=== PATIENT | female | born 1990 | race American Indian/Alaskan Native ===

== ENCOUNTER 2017-01-21 06:16 | Emergency (ER) | payer MEDICAID ==
[2017-01-21 07:12] LABS: Basophils % (Auto) 0.6 % (0.0-1.8); Hematocrit 38.4 % (30.3-42.9); Hemoglobin 13.5 gm/dl (10.1-14.3); Mean Corpuscular HGB Conc 35 % (30-34); Mean Corpuscular Hemoglobin 32 pg (28-32); Mean Corpuscular Volume 92 fl (79-97); Platelet Count 178 K/mm3 (140-440); Red Blood Count 4.17 M/mm3 (3.65-5.03); Red Cell Distribution Width 13.3 % (13.2-15.2); White Blood Count 6.6 K/mm3 (4.5-11.0)
[2017-01-21 07:24] LABS: Alanine Aminotransferase 11 units/L (7-56); Albumin 3.9 g/dL (3.9-5); Albumin/Globulin Ratio 1.1 %; Alkaline Phosphatase 68 units/L (35-129); Anion Gap 21 mmol/L; BUN/Creatinine Ratio 23.33; Blood Urea Nitrogen 7 mg/dL (7-17); Calcium 9.2 mg/dL (8.4-10.2); Carbon Dioxide 18 mmol/L (22-30); Chloride 101.1 mmol/L (98-107); Glucose 77 mg/dL (65-100); Lipase 34 units/L (13-60); Potassium 3.8 mmol/L (3.6-5.0); Sodium 136 mmol/L (137-145); Total Protein 7.3 g/dL (6.3-8.2)
[2017-01-21] MEDS ORDERED: ZOFRAN IV ONE (07:45)
[2017-01-21] MEDS ORDERED: NACL 0.9% 1000 ML 1,000 ML IV ONE ×2 (07:45→07:52)
--- NOTE | 2017-01-21 07:55 | Emergency Department Report ---
HPI - General Chief Complaint: Nausea/Vomiting/Diarrhea Time Seen by Provider: 01/21/17 07:39 - HPI HPI: Room 25 The patient is a 26-year-old female presenting with the chief complaint of nausea and vomiting. The patient states past 3 days she has been vomiting and unable to keep anything down. Patient is approximately 14 weeks' gestational age who states she's had lower abdominal pain since yesterday. Patient denies fever, diarrhea or vaginal bleeding. Location: The gastrointestinal system Duration: 3 days Quality: Nausea, pain Severity: Moderate Modifying factors: [see above] Context: [see above] Mode of transportation: Unknown ED Past Medical Hx - Past Medical History Hx Renal Disease: Yes (kidney stones) Hx Kidney Stones: Yes Hx Psychiatric Treatment: Yes (depression) - Surgical History Additional Surgical History: pt denies - Family History Family history: no significant - Social History Smoking Status: Never Smoker Substance Use Type: None - Medications Home Medications: Home Medications Medication Instructions Recorded Confirmed Last Taken Type Acetaminophen/Codeine [Tylenol #3] 1 tab PO Q6H PRN #20 tab 02/21/15 Unknown Rx Mupirocin [Bactroban 2%] 1 applic TP TID #1 tube 02/21/15 Unknown Rx Sertraline [Zoloft] 50 mg PO QDAY 02/21/15 02/21/15 02/14/15 History Sulfamethoxazole/Trimethoprim 1 each PO BID #20 tablet 02/21/15 Unknown Rx [Bactrim DS TAB] medroxyPROGESTERone ACETATE 150 mg IM Q3M 02/21/15 02/21/15 12/12/14 History [Depo-Provera (Contraception)] Nitrofurantoin Collier/M-Cryst 100 mg PO Q12HR #20 capsule 01/21/17 Unknown Rx [Macrobid CAP] Ondansetron [Zofran ODT TAB] 8 mg PO Q8HR #20 tab.rapdis 01/21/17 Unknown Rx ED Review of Systems ROS: Stated complaint: DEHYDRATION, VOIMITING, 14 WEEKS Other details as noted in HPI Comment: All other systems reviewed and negative Constitutional: denies: chills, fever Eyes: denies: eye pain, eye discharge, vision change ENT: denies: ear pain, throat pain Respiratory: denies: cough, shortness of breath, wheezing Cardiovascular: denies: chest pain, palpitations Endocrine: no symptoms reported Gastrointestinal: abdominal pain, nausea, vomiting. denies: diarrhea Genitourinary: denies: urgency, dysuria, discharge Musculoskeletal: back pain Skin: denies: rash, lesions Neurological: denies: headache, weakness, paresthesias Psychiatric: denies: anxiety, depression Hematological/Lymphatic: denies: easy bleeding, easy bruising Physical Exam - Physical Exam Vital Signs: Vital Signs 01/21/17 01/21/17 06:20 06:21 Temperature 98.5 F 98.5 F Pulse Rate 100 H 100 H Respiratory 18 Rate Blood Pressure 106/66 106/66 O2 Sat by Pulse 96 96 Oximetry Physical Exam: GENERAL: The patient is well-developed well-nourished female lying on a stretcher appearing to be in moderate discomfort. [] HEENT: Normocephalic. Atraumatic. Extraocular motions are intact. NECK: Supple. No meningitic signs are noted. There is no adenopathy noted. CHEST/LUNGS: Clear to auscultation. There is no respiratory distress noted. HEART/CARDIOVASCULAR: Regular. There is no tachycardia. There is no gallop rub or murmur. ABDOMEN: Abdomen is soft, nontender. Patient has normal bowel sounds. There is no abdominal distention. SKIN: There is no rash. There is no edema. There is no diaphoresis. NEURO: The patient is awake, alert, and oriented. The patient is cooperative. The patient has normal speech MUSCULOSKELETAL: There is no evidence of acute injury. ED Course Vital Signs 01/21/17 01/21/17 06:20 06:21 Temperature 98.5 F 98.5 F Pulse Rate 100 H 100 H Respiratory 18 Rate Blood Pressure 106/66 106/66 O2 Sat by Pulse 96 96 Oximetry - Reevaluation(s) Reevaluation #1: 01/21/17 10:04 Patient tolerating po ED Medical Decision Making - Lab Data Result diagrams: 01/21/17 06:46 01/21/17 06:46 Laboratory Tests 01/21/17 01/21/17 01/21/17 06:46 06:46 07:55 WBC 6.6 RBC 4.17 Hgb 13.5 Hct 38.4 MCV 92 MCH 32 MCHC 35 H RDW 13.3 Plt Count 178 Lymph % (Auto) 19.5 Collier % (Auto) 7.7 H Eos % (Auto) 1.0 Baso % (Auto) 0.6 Lymph # 1.3 Collier # 0.5 Eos # 0.1 Baso # 0.0 Seg Neutrophils % 71.2 H Seg Neutrophils # 4.7 Sodium 136 L Potassium 3.8 Chloride 101.1 Carbon Dioxide 18 L Anion Gap 21 BUN 7 Creatinine 0.3 L Estimated GFR > 60 BUN/Creatinine Ratio 23.33 Glucose 77 Calcium 9.2 Total Bilirubin 0.40 AST 13 ALT 11 Alkaline Phosphatase 68 Total Protein 7.3 Albumin 3.9 Albumin/Globulin Ratio 1.1 Lipase 34 HCG, Quant 12068 H Urine Color Urine Turbidity Urine pH Ur Specific [place] Urine Protein Urine Glucose (UA) Urine Ketones Urine Blood Urine Nitrite Urine Bilirubin Urine Urobilinogen Ur Leukocyte Esterase Urine WBC (Auto) Urine RBC (Auto) U Epithel Cells (Auto) Urine Mucus 01/21/17 08:06 WBC RBC Hgb Hct MCV MCH MCHC RDW Plt Count Lymph % (Auto) Collier % (Auto) Eos % (Auto) Baso % (Auto) Lymph # [place]lier # Eos # Baso # Seg Neutrophils % Seg Neutrophils # Sodium Potassium Chloride Carbon Dioxide Anion Gap BUN Creatinine Estimated GFR BUN/Creatinine Ratio Glucose Calcium Total Bilirubin AST ALT Alkaline Phosphatase Total Protein Albumin Albumin/Globulin Ratio Lipase HCG, Quant Urine Color [place] Urine Turbidity Cloudy Urine pH 6.0 Ur Specific [place] 1.028 Urine Protein 100 mg/dl Urine Glucose (UA) Neg Urine Ketones 80 Urine Blood Neg Urine Nitrite Neg Urine Bilirubin Neg Urine Urobilinogen 2.0 Ur Leukocyte Esterase Mod Urine WBC (Auto) 81.0 H Urine RBC (Auto) 30.0 U Epithel Cells (Auto) 80.0 H Urine Mucus 3+ - EKG Data -: EKG Interpreted by Ar EKG shows normal: sinus rhythm Rate: normal - EKG Data When compared to previous EKG there are: no significant change Interpretation: unchanged when compared t (10/21/2015) - Radiology Data Radiology results: report reviewed (pelvic ultrasound), image reviewed (pelvic ultrasound) Pelvic ultrasound (read by radiologist)-single viable intrauterine gestation with ultrasound estimated age of 14 weeks and 5 days. - Differential Diagnosis hyperemesis gravidarum, UTI Critical care attestation.: If time is entered above; I have spent that time in minutes in the direct care of this critically ill patient, excluding procedure time. ED Disposition Clinical Impression: Hyperemesis gravidarum, UTI (urinary tract infection) Disposition: DC- TO HOME OR SELFCARE Is pt being admited?: No Does the pt Need Aspirin: No Condition: Stable Instructions: Hyperemesis Gravidarum (ED) Additional Instructions: Return to the emergency department immediately should you develop worsening symptoms, fever, inability to tolerate food or liquid or any other concerns. Prescriptions: Nitrofurantoin [place]lier/M-Cryst [Macrobid CAP] 100 mg PO Q12HR #20 capsule Ondansetron [Zofran ODT TAB] 8 mg PO Q8HR #20 tab.rapdis Referrals: CONSTANTINO ESCALANTE MD [Staff Physician] - 3-5 Days Time of Disposition: 10:07
[2017-01-21 08:32] LABS: Bilirubin,Urine NEG (Negative); Blood,Urine NEG (Negative); Ketones,Urine 80 mg/dL (Negative); Leukocyte Esterase,Urine MOD (Negative); Mucus,Urine 3+ /HPF; Nitrite,Urine NEG (Negative)
[2017-01-21] MEDS ORDERED: ROCEPHIN/NS 1 GM/50 ML 1 GM/50 ML BAG IV ONE (08:58)
--- NOTE | 2017-01-21 09:54 | Ultrasound Report ---
OB ULTRASOUND GREATER THAN 14 WEEKS INDICATION: Lower abdominal pain. COMPARISON: None similar at this institution. TECHNIQUE: Transabdominal grayscale ultrasound with Doppler interrogation. Gestation: Good Position: Breech Amniotic Fluid: WNL (< 24 weeks, subjective) Placenta: Posterior, fundal Placental Grade: 0 Heart Rate: 155 BPM Cervical length: 3 cm (Normal > 3 cm) It is too early for a anatomical survey BPD: 2.8 cm = 15 w 0 d HC: 10.5 cm = 15 w 0 d AC: 8.7 cm = 15 w 0 d FL: 1.4 cm = 14 w 0 d HC/AC Ratio: 1.21 Cephalic Index: 84.7 LMP: 10/09/2016 Clinical age = 14 w 6 d EDC: 07/16/2017 US Gest. Age = 14 w 5 d EDC: 07/17/2017 CONCLUSION: Single, viable intrauterine gestation with ultrasound estimated age of 14 weeks and 5 days and EDC of 07/17/2017, currently in breech lie with details, as above. Thank you for the opportunity to participate in this patient's care.
[2017-01-21 10:23] VITALS: BP 110/62
== END 2017-01-21 10:22 | disposition home or self-care (01) ==
LOC: ED 06:16
DX: O21.0 Mild hyperemesis gravidarum (principal); O23.42 Unspecified infection of urinary tract in pregnancy, second trimester; Z3A.14 14 weeks gestation of pregnancy
CPT/HCPCS: 36415; 76805; 80053; 81001; 83690; 84702; 85025; 87086; 93005; 93010; 96361; 96365; 96375; 99284; J0696; J2405; J7030

== ENCOUNTER 2017-06-23 05:04 | Inpatient (IN) | payer OTHER ==
[2017-06-23] MEDS ORDERED: LACTATED RINGERS 1,000 ML IV SCH ×2 (06:00→08:00)
[2017-06-23] MEDS ORDERED: POLYCILLIN/NS 2 GM/100 ML 2 GM/100 ML BAG IV SCH (06:00)
--- NOTE | 2017-06-23 06:57 | History and Physical Report ---
History of Present Illness Date of examination: 06/23/17 Date of admission: 06/23/17 Chief complaint: broke my water History of present illness: This is a 27 yo at Past History Past Medical History: no pertinent history Past Surgical History: other (cerclage) [employer] History: herpes Family/Genetic History: diabetes, hypertension Social history: single. denies: smoking, alcohol abuse, prescription drug abuse - Obstetrical History Expected Date of Delivery: 07/16/17 Actual Gestation: 36 Week(s) 5 Day(s) : 3 Para: 2 Hx # Term Pregnancies: 1 Number of Pregnancies: 1 Spontaneous Abortions: 0 Induced : 0 Number of Living Children: 1 Medications and Allergies Allergies Allergy/AdvReac Type Severity Reaction Status Date / Time [place] And Derivatives AdvReac Anaphylaxis Verified 06/23/17 05:15 Home Medications Medication Instructions Recorded Confirmed Last Taken Type Acetaminophen [Tylenol Extra 1,000 mg PO Q6H PRN 03/07/17 03/07/17 03/03/17 History Strength] Active Meds: Active Medications Ampicillin Sodium (Polycillin/Ns 2 Gm/100 Ml) 2 gm in 100 mls @ 100 mls/hr IV ONCE JILLIAN PRN Reason: Protocol Lactated Ringer's (Lactated Ringers) 1,000 mls @ 125 mls/hr IV DIRECT JILLIAN Review of Systems All systems: negative Genitourinary: leakage of fluid - Vital Signs Vital signs: Vital Signs Temp Resp 97.9 F 18 06/23/17 05:15 06/23/17 05:15 Temp Pulse Resp BP Pulse Ox 97.9 F 91 H 18 97 06/23/17 05:15 06/23/17 06:33 06/23/17 05:15 06/23/17 06:33 - Physical Exam Cardiovascular: Regular rate, Normal S1 Lungs: Positive: Clear to auscultation Abdomen: Positive: normal bowel sounds. Negative: distention, tenderness, guarding Genitourinary (Female): Positive: normal external genitalia, normal perenium Vulva: both: normal Vagina: Positive: normal moisture Cervix: Positive: other (cerclage). Negative: lesion, ulceration (cerclage) Uterus: Positive: normal size Anus/Rectum: Positive: normal perianal skin Deep Tendon Reflex Grade: Normal +2 - Obstetrical FHR: category 1 Cervical Dilatation: 3 Uterine Contraction Pattern: Irregular Uterine Tone Measurement Phase: Contraction Results All other labs normal. Assessment and Plan A/P IUP 36+5 weeks s/p cerclage - will remove BMZ for labor expect vaginal delivery
[2017-06-23 07:11] LABS: Hematocrit 30.9 % (30.3-42.9); Hemoglobin 10.2 gm/dl (10.1-14.3); Mean Corpuscular HGB Conc 33 % (30-34); Mean Corpuscular Hemoglobin 27 pg (28-32); Mean Corpuscular Volume 82 fl (79-97); Platelet Count 154 K/mm3 (140-440); Red Blood Count 3.78 M/mm3 (3.65-5.03); Red Cell Distribution Width 14.2 % (13.2-15.2)
--- NOTE | 2017-06-23 07:46 | Event Note ---
Date: 06/23/17 Patient was noted to be 3cm and srom with clear fluid. I used a sterile speculum and noted that cerclage visualized knot and grasped and removed after cutting entire suture. She was noted to be 4/100/-1 with bulging bag. Will give BMZ and antibiotics for . patient tolerated procedure well. will expect vaginal delivery.
[2017-06-23] MEDS ORDERED: BRETHINE IVP PRN (08:00)
[2017-06-23] MEDS ORDERED: ZOFRAN IV PRN ×2 (08:00→14:37)
[2017-06-23] MEDS ORDERED: ePHEDrine SULFATE IV PRN (08:00)
[2017-06-23] MEDS ORDERED: PITOCin/NS 20 UNIT/1000ML DRIP 20 UNITS/1,000 ML BAG IV SCH ×2 (08:00→15:00)
[2017-06-23] MEDS ORDERED: MINERAL OIL PO PRN (08:00)
[2017-06-23] MEDS ORDERED: SUBLIMAZE IV PRN ×2 (08:00→14:04)
[2017-06-23] MEDS ORDERED: NARCAN 0.4 MG/1 ML IV PRN (08:00)
[2017-06-23] MEDS ORDERED: PHENERGAN PO PRN ×2 (08:00→14:37)
[2017-06-23] MEDS ORDERED: STADOL IV PRN (08:00)
[2017-06-23] MEDS ORDERED: XYLOCAINE 2% INFILTRATI NR (08:00)
[2017-06-23] MEDS ORDERED: BRETHINE SUB-Q PRN (08:00)
[2017-06-23] MEDS ORDERED: CELESTONE SOLUSPAN IM SCH (10:00)
[2017-06-23] MEDS: PITOCin/NS 30 UNIT/500ML 30 UNITS/500 ML BAG IV SCH ×3 (11:26→12:47)
--- NOTE | 2017-06-23 12:58 | Event Note ---
Date: 06/23/17 Patient was noted to have a forebag and was arom clear scant fluid. rechecked cervix 4-/-1. pitocin previously initiated. will proceed with high does epitocin tracing cat 1. GBS confirmed neg. expect vaginal delivery
--- NOTE | 2017-06-23 14:27 | Procedure Note ---
OB Delivery Note - Delivery Date of Delivery: 06/23/17 Surgeon: CONSTANTINO ESCALANTE Estimated blood loss: 200cc - Vaginal Delivery presentation: vertex Delivery position: OA Intrapartum events: none Delivery induction: none Delivery augmentation: rupture of membranes, pitocin Delivery monitor: external FHT, external uterine Route of delivery: Delivery placenta: spontaneous Delivery cord: 3 umbilical vessels Episiotomy: none Delivery laceration: 1st degree Delivery repair: vicryl Anesthesia: epidural Delivery comments: Patient progressed to C/C/+2 and pushed to deliver a liveborn Male infant with apgars of 8/9 @ 1358. After delivery of the head, the shoulders delivered easily. The cord was clamped and cut and the was placed on the patient's abdomen. The placenta delivered spontaneously intact with a 3VC. First degree perineum lac repaired with 2-0 vicryl. Weight 5 lbs 13oz. EBL 200cc. - A at 1 minute: 8 at 5 minutes: 9 Gender: Male
[2017-06-23] MEDS ORDERED: PERCOCET 5/325 PO PRN (14:37)
[2017-06-23] MEDS ORDERED: LANSINOH TP PRN (14:37)
[2017-06-23] MEDS ORDERED: PHENERGAN PR PRN (14:37)
[2017-06-23] MEDS ORDERED: MILK OF MAGNESIA PO PRN (14:37)
[2017-06-23] MEDS ORDERED: BENADRYL PO PRN (14:37)
[2017-06-23] MEDS ORDERED: TORADOL IV PRN (14:37)
[2017-06-23] MEDS ORDERED: TYLENOL PO PRN (14:37)
[2017-06-23] MEDS ORDERED: DULCOLAX PR PRN (14:37)
[2017-06-23] MEDS ORDERED: SODIUM CHLORIDE FLUSH SYRINGE 10 ML IV NR (15:00)
[2017-06-23] MEDS ORDERED: SENOKOT S PO SCH (15:00)
[2017-06-23] MEDS: MOTRIN PO SCH (18:05)
[2017-06-23] MEDS: TUCKS PAD TP PRN (18:47)
[2017-06-23] MEDS: COLACE PO SCH (21:54)
[2017-06-24 01:25] LABS: Hematocrit 28.5 % (30.3-42.9); Hemoglobin 9.4 gm/dl (10.1-14.3)
[2017-06-24] MEDS: MOTRIN PO SCH ×3 (02:01→18:50)
[2017-06-24] MEDS ORDERED: BOOSTRIX IM ONE (06:00)
[2017-06-24] MEDS ORDERED: M-M-R II VACCINE SUB-Q ONE (06:00)
[2017-06-24] MEDS: PRENATAL VITAMIN PO SCH (10:43)
[2017-06-24] MEDS: COLACE PO SCH ×2 (10:44→23:40)
[2017-06-24] MEDS: NORCO 5/325 PO PRN ×2 (10:47→19:03)
[2017-06-24] MEDS: DERMOPLAST TP PRN (12:35)
--- NOTE | 2017-06-24 13:21 | Progress Note ---
Assessment and Plan A/P PPD # 1 s/p doing well no complaints h/h 10.2/30.9---9.4/28.5 on iron continue course discharge home tomorrow with f/u in 4 weeks to call clinic for circumcision Subjective - Subjective Date of service: 06/24/17 Principal diagnosis: s/p Interval history: This is a 27 yo at Patient reports: appetite normal, voiding normally, pain well controlled, flatus , ambulating normally : doing well Objective - Vital Signs Latest vital signs: Vital Signs Temp Pulse Resp BP BP Pulse Ox 06/24/17 10:47 18 06/24/17 10:44 18 06/24/17 07:43 98.3 F 67 18 102/56 98 06/24/17 03:30 96.7 F L 76 110/70 06/24/17 00:50 98.0 F 75 20 104/61 99 06/23/17 16:45 20 06/23/17 16:15 98.6 F 68 16 106/61 06/23/17 15:54 70 93/60 06/23/17 15:38 71 93/54 06/23/17 15:23 75 106/61 06/23/17 15:08 80 109/63 06/23/17 14:54 80 109/58 06/23/17 14:39 89 108/57 Intake and Output 06/23/17 06/24/17 06/24/17 23:59 07:59 15:59 Intake Total 240 240 Balance 240 240 Intake: Oral 240 240 Other: Total, Intake Amount 240 120 # Voids Void 1 1 Estimated Blood Loss 200 - Exam Breasts: Present: normal Cardiovascular: Present: Regular rate, Normal S1 Lungs: Present: Clear to auscultation, Normal air movement Abdomen: Present: normal appearance, soft, normal bowel sounds. Absent: distention, tenderness, guarding Vulva: both: normal Uterus: Present: normal, firm, fundal height below umbilicus. Absent: bogginess , tenderness Extremities: Present: normal Deep Tendon Reflex Grade: Normal +2 - Labs Labs: Abnormal lab results 06/24/17 Range/Units 01:14 Hgb 9.4 L (10.1-14.3) gm/dl Hct 28.5 L (30.3-42.9) %
[2017-06-25] MEDS: MOTRIN PO SCH ×2 (00:53→08:38)
--- NOTE | 2017-06-25 07:56 | Progress Note ---
Assessment and Plan - Patient Problems (1) delivery Current Visit: Yes Status: Acute Plan to address problem: Patient doing well Discharge home Subjective - Subjective Date of service: 06/25/17 Principal diagnosis: s/p Interval history: Patient is without complaints. She is tolerating regular diet. Her pain is well-controlled. Patient reports: appetite normal, voiding normally, pain well controlled [place]: in NICU Objective - Vital Signs Latest vital signs: Vital Signs Temp Resp Pulse Ox 06/25/17 01:53 16 06/25/17 00:55 98 F 18 98 06/25/17 00:53 16 06/24/17 19:50 16 06/24/17 19:03 18 06/24/17 10:47 18 06/24/17 10:44 18 Intake and Output 06/24/17 06/25/17 06/25/17 22:59 06:59 14:59 Intake Total 240 Balance 240 Intake: Oral 240 Other: Total, Intake Amount 240 # Voids Void 1 - Exam Uterus: Present: normal, firm
--- NOTE | 2017-06-25 08:00 | Discharge Summary ---
Providers - Providers Date of Admission: 06/23/17 06:53 Date of discharge: 06/25/17 Attending physician: CONSTANTINO ESCALANTE MD Primary care physician: CONSTANTINO ESCALANTE MD Hospitalization Reason for admission: labor, rupture of membranes Delivery: Procedure: other (removal of cerclage) Discharge diagnosis: delivery [place] baby: male Hospital course: The patient admitted with gross rupture membranes. It was noted that her cerclage still in place. The patient had a successful vaginal delivery. course was uncomplicated. Condition at discharge: Good Disposition: DC-01 TO HOME OR SELFCARE - Discharge Diagnoses (1) delivery Status: Acute Plan - Discharge Medications Prescriptions: Docusate Sodium [Colace] 100 mg PO BID PRN #30 capsule PRN Reason: Constipation Ferrous Sulfate 325 mg PO BID #60 tablet. HYDROcodone/ACETAMINOPHEN [[place] 5-325 Tablet] 1 each PO Q6HR #30 tablet Ibuprofen [Motrin] 600 mg PO Q8H PRN #30 tablet PRN Reason: Pain - Provider Discharge Summary Activity: no sex for 6 weeks, no heavy lifting 4 weeks, no strenuous exercise Diet: routine Instructions: routine Additional instructions: [] Smoking cessation referral if applicable(refer to patient education folder for contact #) [] Refer to [facility] Booklet Call your doctor immediately for: * Fever > 100.5 * Heavy vaginal bleeding ( >1 pad per hour) * Severe persistent headache * Shortness of breath * Reddened, hot, painful area to leg or breast * Follow-up 4 weeks - Follow up plan
[2017-06-25 09:05] VITALS: BP 108/63
[2017-06-25] MEDS: TUCKS PAD TP PRN (10:41)
[2017-06-25] MEDS: PRENATAL VITAMIN PO SCH (10:41)
[2017-06-25] MEDS: DERMOPLAST TP PRN (10:41)
[2017-06-25] MEDS: COLACE PO SCH (10:41)
== END 2017-06-25 10:30 | disposition home or self-care (01) | DRG 774 ==
LOC: TRG 05:04 → LD 06:53 → OB 16:23
PROVIDERS: ADMIT Obstetrics & Gynecology; ATTEND Obstetrics & Gynecology
PROC: 3E0234Z Introduction of Serum, Toxoid and Vaccine into Muscle, Percutaneous Approach (ICD-10-PCS; principal; 2017-06-23)
PROC: 0HQ9XZZ Repair Perineum Skin, External Approach (ICD-10-PCS; 2017-06-23)
PROC: 3E0R3BZ Introduction of Anesthetic Agent into Spinal Canal, Percutaneous Approach (ICD-10-PCS; 2017-06-23)
PROC: 00HU33Z Insertion of Infusion Device into Spinal Canal, Percutaneous Approach (ICD-10-PCS; 2017-06-23)
PROC: 10E0XZZ Delivery of Products of Conception, External Approach (ICD-10-PCS; 2017-06-23)
DX: O70.0 First degree perineal laceration during delivery (principal); O98.52 Other viral diseases complicating childbirth; O60.14X0 Preterm labor third trimester with preterm delivery third trimester, not applicable or unspecified; Z3A.37 37 weeks gestation of pregnancy; Z23 Encounter for immunization; Z88.8 Allergy status to other drugs, medicaments and biological substances; B00.9 Herpesviral infection, unspecified; Z3A.36 36 weeks gestation of pregnancy; Z37.0 Single live birth
CPT/HCPCS: 36415; 85014; 85018; 85027; 86592; 86850; 86900; 86901; 99211; A6250; G0463; J0702; J2590; J3010; J7120

== ENCOUNTER 2018-10-12 13:24 | Emergency (ER) | payer OTHER ==
--- NOTE | 2018-10-12 13:38 | Emergency Department Report ---
Blank Doc - Documentation Documentation: This is a 28-year-old female that presents with n/v. Stated is but is not sure how long. Denies vaginal bleeding or pain. This initial assessment/diagnostic orders/clinical plan/treatment(s) is/are subject to change based on patient's health status, clinical progression and re- assessment by fellow clinical providers in the ED. Further treatment and workup at subsequent clinical providers discretion. Patient/guardians urged not to elope from the ED as their condition may be serious if not clinically assessed and managed. Initial orders include: 1- Patient sent to [facility] for further evaluation and treatment 2- labs 3- UA
[2018-10-12 14:34] LABS: Basophils % (Auto) 0.7 % (0.0-1.8); Eosinophils % (Auto) 0.7 % (0.0-4.3); Hemoglobin 13.1 gm/dl (10.1-14.3); Lymphocytes # (Auto) 1.6 K/mm3 (1.2-5.4); Lymphocytes % (Auto) 26.7 % (13.4-35.0); Mean Corpuscular HGB Conc 33 % (30-34); Mean Corpuscular Volume 96 fl (79-97); Monocytes # (Auto) 0.5 K/mm3 (0.0-0.8); Monocytes % (Auto) 8.7 % (0.0-7.3); Platelet Count 175 K/mm3 (140-440); Red Blood Count 4.15 M/mm3 (3.65-5.03); Red Cell Distribution Width 13.7 % (13.2-15.2)
[2018-10-12 14:45] LABS: BUN/Creatinine Ratio 16; Blood Urea Nitrogen 8 mg/dL (7-17); Calcium 9.1 mg/dL (8.4-10.2); Hemolysis Index 42
[2018-10-12 15:07] LABS: Bilirubin,Urine NEG (Negative); Blood,Urine NEG (Negative); Color,Urine Amber (Yellow); Mucus,Urine 3+ /HPF; Protein,Urine <15 mg/dL mg/dL (Negative); Urobilinogen,Urine < 2.0 mg/dL (<2.0)
[2018-10-12] MEDS ORDERED: ZOFRAN IV ONE (16:40)
[2018-10-12] MEDS ORDERED: NACL 0.9% 1000 ML 1,000 ML IV ONE (16:40)
--- NOTE | 2018-10-12 16:43 | Emergency Department Report ---
Vomiting/Diarrhea - HPI Chief Complaint: Nausea/Vomiting/Diarrhea Stated Complaint: /NAUSEA/DEHYDRATION Time Seen by Provider: 10/12/18 13:37 Duration: 1 week Severity: moderate Nausea/Vomiting Severity: Moderate Diarrhea Severity: None Pain Severity: None Symptoms: Yes Able to Tolerate Fluids, No Watery Diarrhea, No Bloody diarrhea, No Fever, No Recent Unusual Foods, No Recent Untreated Water, No Recent use of Antibiotics, No Family w/ Similar Symptoms, No Contacts w/ Similar Symptoms, No Rash, No Hematuria, No Recent URI Symptoms Other History: This is a 28-year-old -[place] female who presents to emergency room with nausea and vomiting for one week. Patient states she recently found out she was . Last menstrual period was 08/31/2018, A1 one miscarriage. Patient states she does not have an DISTRICT SERVICE MANAGER yet. She denies abdominal pain, vaginal discharge, vaginal bleeding, urinary frequency, urgency, dysuria, dizziness, or back pain. ED Review of Systems ROS: Stated complaint: /NAUSEA/DEHYDRATION Other details as noted in HPI Constitutional: denies: chills, fever Respiratory: denies: cough, shortness of breath, wheezing Cardiovascular: denies: chest pain, palpitations Gastrointestinal: nausea, vomiting. denies: abdominal pain, diarrhea Musculoskeletal: denies: back pain, joint swelling, arthralgia Skin: denies: rash, lesions Neurological: denies: headache, weakness, paresthesias Psychiatric: denies: anxiety, depression ED Past Medical Hx - Past Medical History Hx Hypertension: No Hx Congestive Heart Failure: No Hx Diabetes: No Hx Deep Vein Thrombosis: No Hx Renal Disease: No (kidney stones) Hx Sickle Cell Disease: No Hx Seizures: No Hx Kidney Stones: Yes Hx Psychiatric Treatment: Yes (depression) Hx Asthma: No Hx COPD: No Hx HIV: No - Surgical History Additional Surgical History: pt denies - Social History Smoking Status: Current Every Day Smoker Substance Use Type: Alcohol, Marijuana - Medications Home Medications: Home Medications Medication Instructions Recorded Confirmed Last Taken Type Acetaminophen [Tylenol Extra 1,000 mg PO Q6H PRN 03/07/17 03/07/17 03/03/17 History Strength] Docusate Sodium [Colace] 100 mg PO BID PRN #30 capsule 06/23/17 Unknown Rx Ferrous Sulfate 325 mg PO BID #60 tablet. 06/23/17 Unknown Rx HYDROcodone/ACETAMINOPHEN [[place] 1 each PO Q6HR #30 tablet 06/23/17 Unknown Rx 5-325 Tablet] Ibuprofen [Motrin] 600 mg PO Q8H PRN #30 tablet 06/23/17 Unknown Rx Doxylamine Succinate [Unisom] 12.5 mg PO TID PRN #30 tablet 10/12/18 Unknown Rx Pyridoxine HCl (Vitamin B6) 25 mg PO TID PRN #30 tablet 10/12/18 Unknown Rx [Pyridoxine HCl] Vomiting Diarrhea Exam - Exam General: Vital signs noted. No distress. Alert and acting appropriately. HEENT: Yes Pharyngeal Erythema (erythematous posterior pharynx, uvula midline), Yes Moist Mucous Membranes, No Pharyngeal Exudates, No Rhinorrhea, No Conjuctival Injection, No Frontal Tenderness, No Maxillary Tenderness Neck: No Adenopathy, No Rigidity Lungs: Yes Clear Lung Sounds, Yes Good Air Exchange, No Wheezes, No Stridor, No Cough, No Nasal Flaring, No Retractions, No Use of Accessory Muscles Heart exam: Regular: Yes, Murmur: No, Tachycardia: No Abdomen: Tenderness: No, Peritoneal Signs: No, Distention: No, Hyperactive Bowel sounds: No Skin exam: Rash: No, Edema: No, Normal turgor: Yes Neurologic: Alert and oriented, no deficits. Musculoskeletal: Unremarkable. ED Course Vital Signs 10/12/18 13:34 Temperature 98.4 F Pulse Rate 66 Respiratory 18 Rate Blood Pressure 124/68 O2 Sat by Pulse 100 Oximetry ED Medical Decision Making - Lab Data Result diagrams: 10/12/18 14:14 10/12/18 14:14 Lab Results 10/12/18 10/12/18 10/12/18 Range/Units 14:14 14:14 14:14 WBC 6.1 (4.5-11.0) K/mm3 RBC 4.15 (3.65-5.03) M/mm3 Hgb 13.1 (10.1-14.3) gm/dl Hct 40.0 (30.3-42.9) % MCV 96 (79-97) fl MCH 32 (28-32) pg MCHC 33 (30-34) % RDW 13.7 (13.2-15.2) % Plt Count 175 (140-440) K/mm3 Lymph % (Auto) 26.7 (13.4-35.0) % [place] % (Auto) 8.7 H (0.0-7.3) % Eos % (Auto) 0.7 (0.0-4.3) % Baso % (Auto) 0.7 (0.0-1.8) % Lymph # 1.6 (1.2-5.4) K/mm3 [place] # 0.5 (0.0-0.8) K/mm3 Eos # 0.0 (0.0-0.4) K/mm3 Baso # 0.0 (0.0-0.1) K/mm3 Seg Neutrophils % 63.2 (40.0-70.0) % Seg Neutrophils # 3.8 (1.8-7.7) K/mm3 Sodium 136 L (137-145) mmol/L Potassium 4.1 (3.6-5.0) mmol/L Chloride 104.4 (98-107) mmol/L Carbon Dioxide 20 L (22-30) mmol/L Anion Gap 16 mmol/L BUN 8 (7-17) mg/dL Creatinine 0.5 L (0.7-1.2) mg/dL Estimated GFR > 60 ml/min BUN/Creatinine Ratio 16 % Glucose 74 (65-100) mg/dL Calcium 9.1 (8.4-10.2) mg/dL HCG, Quant 21121 H (0-4) mIU/mL Urine Color (Yellow) Urine Turbidity (Clear) Urine pH (5.0-7.0) Ur Specific Ary (1.003-1.030) Urine Protein (Negative) mg/dL Urine Glucose (UA) (Negative) mg/dL Urine Ketones (Negative) mg/dL Urine Blood (Negative) Urine Nitrite (Negative) Urine Bilirubin (Negative) Urine Urobilinogen (<2.0) mg/dL Ur Leukocyte Esterase (Negative) Urine WBC (Auto) (0.0-6.0) /HPF Urine RBC (Auto) (0.0-6.0) /HPF U Epithel Cells (Auto) (0-13.0) /HPF Urine Mucus /HPF 10/12/18 Range/Units Unknown WBC (4.5-11.0) K/mm3 RBC (3.65-5.03) M/mm3 Hgb (10.1-14.3) gm/dl Hct (30.3-42.9) % MCV (79-97) fl MCH (28-32) pg MCHC (30-34) % RDW (13.2-15.2) % Plt Count (140-440) K/mm3 Lymph % (Auto) (13.4-35.0) % [place] % (Auto) (0.0-7.3) % Eos % (Auto) (0.0-4.3) % Baso % (Auto) (0.0-1.8) % Lymph # (1.2-5.4) K/mm3 [place] # (0.0-0.8) K/mm3 Eos # (0.0-0.4) K/mm3 Baso # (0.0-0.1) K/mm3 Seg Neutrophils % (40.0-70.0) % Seg Neutrophils # (1.8-7.7) K/mm3 Sodium (137-145) mmol/L Potassium (3.6-5.0) mmol/L Chloride (98-107) mmol/L Carbon Dioxide (22-30) mmol/L Anion Gap mmol/L BUN (7-17) mg/dL Creatinine (0.7-1.2) mg/dL Estimated GFR ml/min BUN/Creatinine Ratio % Glucose (65-100) mg/dL Calcium (8.4-10.2) mg/dL HCG, Quant (0-4) mIU/mL Urine Color [place] (Yellow) Urine Turbidity Turbid (Clear) Urine pH 7.0 (5.0-7.0) Ur Specific Ary 1.020 (1.003-1.030) Urine Protein <15 mg/dl (Negative) mg/dL Urine Glucose (UA) Neg (Negative) mg/dL Urine Ketones 20 (Negative) mg/dL Urine Blood Neg (Negative) Urine Nitrite Neg (Negative) Urine Bilirubin Neg (Negative) Urine Urobilinogen < 2.0 (<2.0) mg/dL Ur Leukocyte Esterase Neg (Negative) Urine WBC (Auto) 2.0 (0.0-6.0) /HPF Urine RBC (Auto) 5.0 (0.0-6.0) /HPF U Epithel Cells (Auto) 1.0 (0-13.0) /HPF Urine Mucus 3+ /HPF - Medical Decision Making Patient was examined by me. Vitals are normal and patient is in no acute distress. Obtain labs. IV site initiated. Patient was given normal saline 1 L IV bolus and Zofran 4 mg IV. By mouth challenge tolerated and patient reports feeling better. He denies abdominal pain, vaginal discharge or bleeding. Start pyridoxine and doxylamine for hyperemesis. Femoral to DISTRICT SERVICE MANAGER for continued care. Plan discussed with patient to discharge home and treat outpatient. She agrees with ER plan. Patient discharged home in stable condition. Follow up with PCP in 2-3 days. Critical care attestation.: If time is entered above; I have spent that time in minutes in the direct care of this critically ill patient, excluding procedure time. ED Disposition Clinical Impression: Nausea and vomiting in , Hyperemesis gravidarum Disposition: TO HOME OR SELFCARE Is pt being admited?: No Does the pt Need Aspirin: No Condition: Stable Instructions: Acute Nausea and Vomiting (ED), Hyperemesis Gravidarum (ED) Additional Instructions: Take medication as prescribed to prevent symptoms. Follow up with DISTRICT SERVICE MANAGER from the referrals below. Prescriptions: Pyridoxine HCl (Vitamin B6) [Pyridoxine HCl] 25 mg PO TID PRN #30 tablet PRN Reason: Nausea Doxylamine Succinate [Unisom] 12.5 mg PO TID PRN #30 tablet PRN Reason: Nausea Referrals: GISELLE HECTOR MD [Primary Care Provider] - 3-5 Days [facility] [Provider Group] - 3-5 Days [facility] [Provider Group] - 3-5 Days [facility] [Provider Group] - 3-5 Days Forms: Work/School Release Form(ED) Time of Disposition: 18:22
[2018-10-12 18:11] VITALS: BP 112/59
== END 2018-10-12 18:46 | disposition home or self-care (01) ==
LOC: ED 13:24
DX: O21.0 Mild hyperemesis gravidarum (principal); E86.0 Dehydration; O99.331 Smoking (tobacco) complicating pregnancy, first trimester; F12.10 Cannabis abuse, uncomplicated; Z91.018 Allergy to other foods; Z3A.01 Less than 8 weeks gestation of pregnancy
CPT/HCPCS: 36415; 80048; 81001; 84702; 85025; 96361; 96374; 99283; J2405; J7030

== ENCOUNTER 2021-11-16 13:47 | Outpatient (CLI) | payer OTHER ==
[2021-11-16 18:02] VITALS: BP 110/76
== END 2021-11-16 18:21 | disposition home or self-care (01) ==
LOC: TRG 13:47 → APU 13:47 → TRG 18:21
PROVIDERS: ATTEND Obstetrics & Gynecology
DX: O42.913 Preterm premature rupture of membranes, unspecified as to length of time between rupture and onset of labor, third trimester (principal); Z3A.35 35 weeks gestation of pregnancy
CPT/HCPCS: 36415; 84112